=== PATIENT | female | born 1975 | race Caucasian/White ===

== ENCOUNTER → 2021-04-08 16:15 | Outpatient (CLI) | payer MEDICAID, SELFPAY ==
[2018-12-23 12:24] VITALS: BMI 41.8
[2021-04-08 18:04] LABS: Absolute Neutrophil Count 5.1 X10^3/uL (2.0-7.7); Basophil# 0.06 X10^3/uL; Basophil% 0.8 % (0-1); Eosinophil# 0.12 X10^3/uL; Eosinophils% 1.5 % (0-5); Hematocrit 41.6 % (37-47); Lymphocyte % 25.5 % (19-41); Mean Corp Hgb Conc 31.3 g/dL (32-36); Mean Corpuscular Hgb 25.5 pg (27.0-32.0); Mean Corpuscular Volume 81.7 fL (81-99); Mean Platelet Vol. 10.1 fl (6.2-12.0); Monocyte# 0.53 X10^3/uL; Monocyte% 6.8 % (0-10); NRBC Flagged by Analyzer 0 % (0-5); Neutrophil # 5.12 X10^3/uL (2.7-7.7); Neutrophil % 65.1 % (47-70); Platelet Count 259 K/mm3 (150-450); RBC Distribution Width CV 14.5 % (11.6-14.6); Red Blood Count 5.09 M/mm3 (4.2-5.4); White Blood Count 7.9 K/mm3 (4.4-11.0)
[2021-04-08 18:27] LABS: Hemoglobin A1c 10.4 % (3.8-5.6)
[2021-04-08 18:41] LABS: ALB/GLOB Ratio 0.8 RATIO (0.9-2.4); AST(SGOT) 19 U/L (15-37); Alanine Aminotransfer ALT/SGPT 32 U/L (13-56); Albumin, Serum 3.4 g/dL (3.2-5.0); Alkaline Phosphatase 62 U/L (45-117); Anion Gap 9 (5-15); BUN 20 mg/dL (7-18); BUN/Creat Ratio 29.2 RATIO (10-20); Calcium,Total 9.6 mg/dL (8.5-10.1); Chloride 105 mmol/L (98-107); Cholesterol 194 mg/dL (200); Creatinine, Serum 0.68 mg/dL (0.55-1.02); EST Glomerular Filtration Rate 98 mL/min (>60); Est Glom Filt Rate - Afr Amer 118 mL/min (>60); Glucose 203 mg/dL (74-106); High Density Lipoprotein 50 mg/dL; Potassium 3.9 mmol/L (3.5-5.1); Protein, Total 7.4 g/dL (6.4-8.2); Sodium Level 138 mmol/L (136-145); T4 Free Direct 1.11 ng/dL (0.76-1.46); Thyroid Stim Hormone (TSH) 2.24 uIU/mL (0.358-3.74); Triglycerides 142 mg/dL; Very Low Density Lipoprotein 28 mg/dL (5-40)
[2021-04-08 18:46] LABS: Vitamin B12 531 pg/mL (211-911)
[2021-04-08 18:50] LABS: Microalbumin,Random Urine 91.5 mg/L (NO RANGE EST.); Microalbumin:Creatinine Ratio 65.4 mg/g CRE (<30 mg/g CRE)
[2021-04-15 20:07] LABS: VITAMIN B6 7.5 ug/L (2.0-32.8); Vitamin B1, Thiamine 125.4 nmol/L (66.5-200.0)
[2021-04-16 13:08] LABS: Anti-Thyroglobulin AB < 1.0 IU/mL (0.0-0.9); Thyroglobulin, Serum Qt. 58.1 ng/mL (1.5-38.5); Thyroid Peroxidase AB 15 IU/mL (0-34)
== END ==
PROVIDERS: PCP Family Medicine; Referring Provider Family Medicine; Visit Provider Family Medicine
DX: E11.9 Type 2 diabetes mellitus without complications (principal); G62.9 Polyneuropathy, unspecified; L65.9 Nonscarring hair loss, unspecified
CPT/HCPCS: 36415; 80053; 80061; 82043; 82570; 82607; 83036; 84207; 84425; 84432; 84439; 84443; 85025; 86376; 86800

== ENCOUNTER 2021-04-24 08:24 | Outpatient (RCR) | payer MEDICAID, SELFPAY ==
[2018-12-23 12:24] VITALS: BMI 41.8
[2021-04-24 08:45] VITALS: BP 149/103; PULSE 73; RESP 20; TEMP 36.4; BMI 44.4
--- NOTE | 2021-04-24 13:04 | PCM.WC.HP ---
History of Present Illness Date of Service: 04/24/21 Chief Complaint: Right Great Toe Ulcer History of Wound: Ms Hunter is a 45yo who was referred here by her PCP due to recurrent area of ulceration and callus formation over her right great toe. Started in February and at that point, was seen by a [facility] at the [facility]. She states that the callus was 'shaved' off and she also had inserts made. She however states that she is on her feet a lot. Callus recurred . Occasional drainage but none recently. History of diabetes mellitus type 2 and working closely with a primary care physician to manage this. Currently on Metformin which she reports compliance with. She denies chills, fever or otherwise feeling of unwell. [facility] Medical History (Updated 04/24/21 @ 13:[address] Sylvie Bauer MD) Callus of foot Type 2 diabetes mellitus Home Medications metformin 500 mg PO BID 04/24/21 [History Last Taken Unknown] Allergy/AdvReac Type Severity Reaction Status Date / Time No Known Allergies Allergy Verified 04/24/21 09:07 Social History (Updated 12/23/18 @ 12:38 by TRAIC Obregon) Smoking Status: Never smoker ROS Constitutional Constitutional: Denies body ache(s), lethargy, malaise, night sweats, poor appetite or snoring Eyes Eyes: Denies change in eye color, discharge from eye(s), discongugate gaze, foreign body, halo effect or irritation ENT HEENT: Denies foreign body in nose, hearing loss, hoarseness, lip swelling, nasal obstruction, nasal trauma, neck mass or odynophagia Cardiovascular Cardiovascular: Denies chest pain, chest pain at rest, chest pain with activity, claudication, cold extremities, dyspnea at rest, edema, fatigue or flutter in chest Respiratory/Chest Respiratory/Chest: Denies difficulty clearing secretions, dry cough, dusky skin, dyspnea, hoarseness, pain with cough or pale skin Gastrointestinal Gastrointestinal: Denies anorexia, coffee ground emesis, constipation, cramping, diarrhea, dry heaves or dyspepsia Genitourinary Genitourinary: Denies abdominal discomfort, burning urination, change in urinary stream or difficulty urinating Musculoskeletal Musculoskeletal: Denies joint stiffness, joint swelling, loss of height, muscle cramps or muscle spasms Integumentary Integumentary: Denies erythema, hirsutism, jaundice, nail changes or new lesions Neurologic Neurologic: Denies abnormal hearing, abnormal movements, disequilibrium, dizziness, focal weakness or frequent falls Psychiatric Psychiatric: Denies abnormal sleep pattern, anhedonia, anxiety, auditory hallucinations or cognitive impairment Endocrine Endocrinology: Denies excessive sweating, fatigue, flushing or heat intolerance Vital Signs Vital Signs Vital Signs: 04/24/21 08:45 Temperature 97.5 F L Temperature Source Temporal Pulse Rate 73 Respiratory Rate 20 H Blood Pressure 149/103 H Blood Pressure Mean 118 Blood Pressure Source Monitor Weight Weight: 309 lb 3.654 oz Body Mass Index (BMI) 44.4 Physical Exam Const Negative for alert, oriented x3 or no apparent distress General Appearance: Negative for cooperative or comfortable Orientation / Consciousness: Negative for awake HEENT Negative for normocephalic or head/scalp atraumatic Head and Scalp: Negative for normal to inspection, normocephalic or atraumatic Neck full ROM General: normal visual inspection Resp normal respiratory effort Effort and Inspection: able to speak in complete sentences Extremity normal to inspection General Extremity: normal exam except as noted Skin General Skin Exam: no breakdown Neuro oriented x3, CN's II-XII intact bilaterally and moves all extremities Psych Appearance: grossly normal Activity / Motor Behavior: appropriate eye contact Speech: normal speech Mood & Affect: euthymic mood Thought Process: normal thought process Charges/Coding Visit Charges Office Visits / Consults: 96011 OV L4 New Assessment/Plan Assessment/Plan (1) Callus of foot: CODE(S): L84 - Corns and callosities (2) Type 2 diabetes mellitus: CODE(S): E11.9 - Type 2 diabetes mellitus without complications PLAN: Recurrent area of callus formation, Right great toe. Debridement/shaving off of callus done today. No ulceration. Probed and no area of opening as well. She is prone to recurrent pressure to the area and callus formation. Wear appropriate footwear at all times. Pressure support/offloading. She states that she has been given shoes and inserts by podiatry, she was advised to use this consistently. Keep area protected. Optimal diabetes control. She was advised to call if there is any area of opening or new concerns develop. She voiced understanding. Discharge from the wound center This note was generated with [employer] software. It may contain incorrect words, spelling, and punctuation that were not noted in checking the note before signing.
== END 2021-04-24 09:47 | disposition home or self-care (01) ==
LOC: WC 08:24
PROVIDERS: PCP Family Medicine; Visit Provider Internal Medicine
DX: L84 Corns and callosities (principal); E11.9 Type 2 diabetes mellitus without complications
CPT/HCPCS: 99203; G0463

== ENCOUNTER → 2021-04-29 13:31 | Outpatient (CLI) | payer MEDICAID, SELFPAY ==
[2018-12-23 12:24] VITALS: BMI 41.8
[2021-04-24 08:45] VITALS: BMI 44.4
--- NOTE | 2021-04-29 13:35 | ART_ITS ---
Reason For Study: Foot ulcer Procedure A bilateral lower extremity continuous wave Doppler with analog waveform analysis,segmental pressures,and ankle brachial indexes with exercise. Left Segmental Pressures Left brachial= 128mmHg. Left posterior tibial artery = 149mmHg. Left dorsalis pedis artery = 139mmHg. Left digit = 108 mmHg. The left dorsalis pedis waveforms are triphasic. The left posterior tibial artery waveforms are triphasic. Right Segmental Pressures Right brachial= 125mmHg. Right posterior tibial artery = 140mmHg. Right dorsalis pedis artery = 127mmHg. Right digit = 98 mmHg. The right dorsalis pedis waveforms are triphasic. The right posterior tibial artery waveforms are triphasic. Indices The right ankle brachial index by the dorsalis pedis is 0.99. The right ankle brachial index by the posterior tibial artery is 1.09. The right digital-brachial index is 0.77. The right post exercise ankle brachial index is 1.25. The left ankle brachial index by the dorsalis pedis is 1.09. The left ankle brachial index by the posterior tibial artery is 1.16. The left digital-brachial index is 0.84. The left post exercise ankle brachial index is 1.23. VL/Lower Ext Art Exam w/ Exercise Interpretation Summary Triphasic Doppler waveforms are noted at ankle level bilaterally. Pulse-volume recordings are satisfactory at all levels bilaterally, including low-thigh, calf, ankle, and d igital levels. Resting ankle-brachial indices are normal bilaterally. Digital-brachial indices are normal bilaterally. The patient was ambulated on a treadmill for 5 minutes at 1.4 mile s per hour and a 5% grade, following which ankle pressures augmented bilaterally, a normal physiolo gical response. There is no evidence of significant arterial occlusive disease in the lower ext remities bilaterally. Ordering Physician: Marco Griffith Referring Physician: Marco Griffith Performed By: Carmen Guzmán RVT and Student
--- NOTE | 2021-04-29 13:35 | US_ITS ---
STUDY: THYROID ULTRASOUND REASON FOR EXAM: Female, 45 years old. NODULE TECHNIQUE: Ultrasound evaluation of the thyroid was performed with real-time and static ahn-scale imaging. COMPARISON: None. FINDINGS: RIGHT LOBE: The right lobe of the thyroid gland measures 8 x 2.7 x 2.4 cm. multiple nodules are present on the right side at least 3 of them detected one measures 0.6 x 0.8 x 0.5 cm the other one measures 0.6 x 0.8 x 0.3 both of these are seen in the upper aspect of the right lobe. There is 0.9 x 1 x 0.8 cm in the lower pole of the right lobe there are few tiny ones as well. The left lobe measures 6.7 x 2.7 x 1.6 cm. multiple nodules seen the largest noted in the lower lobe that measures 1.7 x 1.5 x 1.2 cm all of them are solid. The isthmus is 6 mm in thickness. The right parathyroid gland seen in entities hypoechoic texture is it measures 2.5 x 1.5 x 0.9 cm. US/Thyroid IMPRESSION: Multiple small solid nodules involving both lobes of the thyroid as mentioned above. Electronically Signed: Ramona Link, at 10:35 EDT Tel , Service support ,
== END ==
PROVIDERS: PCP Family Medicine; Referring Provider Family Medicine; Visit Provider Family Medicine
DX: E04.1 Nontoxic single thyroid nodule (principal); E11.621 Type 2 diabetes mellitus with foot ulcer
CPT/HCPCS: 76536; 93924

== ENCOUNTER 2021-04-30 15:00 | Outpatient (RCR) | payer MEDICAID, SELFPAY | END 2021-05-07 23:59 | LOC: DC 15:00 | PROVIDERS: PCP Family Medicine; Visit Provider Family Medicine | DX: E11.9 Type 2 diabetes mellitus without complications (principal) | CPT/HCPCS: G0108 ==

== ENCOUNTER → 2021-05-22 11:48 | Outpatient (CLI) | payer MEDICAID, SELFPAY ==
[2021-04-24 08:45] VITALS: BMI 44.4
--- NOTE | 2021-05-22 | ASPS_PTH ---
PAT[facility]: [facility] U[id number] AGE/SX: 50/F ROOM: RE05/22/[address]: Dr. Jose Brown MD : 1975 BED: DIS: SPEC #: [id number] RECD: 05/23/21 11:45 STATUS: MARIA SUTTONJoaquín #: [id number] ALYSA: 05/22/21 00:[address]: Jose Brown DEPT: CYTOLOGY RECD BY: Veronica Duarte ENTERED: 05/23/21 13:34 SP TYPE: ASPIRATION OTHR DR: Dr. Marco Griffith MD Tissues: Thyroid gland, NOS Procedures: Special Stain Group II Cytology Other HEADER OPERATION: Ultrasound-guided fine needle aspiration of left thyroid PRE-OP DIAGNOSIS: Thyroid nodules TISSUE SUBMITTED: FNA left thyroid slides x12 DIAGNOSIS CYTOLOGY Left thyroid nodule, ultrasound-guided FNA (smears): Consistent with benign follicular/colloid nodule. Adequate for evaluation. See comment. SJ:vijay 05/26/2021 COMMENT Correlation with clinical, radiologic findings and appropriate follow up are necessary. CYTOLOGY STUDY Slides are reviewed. CYTOLOGY GROSS Received are 12 smears labeled with the patient's name and designated per the requisition as left thyroid. Submitted for staining. / vijay 05/23/2021 TC:5 CPT: 28627
== END ==
PROVIDERS: PCP Family Medicine; Visit Provider Surgery
DX: E04.1 Nontoxic single thyroid nodule (principal)
CPT/HCPCS: 88161; 88313

== ENCOUNTER 2021-06-05 16:00 | Outpatient (RCR) | payer MEDICAID, SELFPAY | END 2021-06-07 23:59 | LOC: DC 16:00 | PROVIDERS: PCP Family Medicine; Visit Provider Family Medicine | DX: E11.9 Type 2 diabetes mellitus without complications (principal) | CPT/HCPCS: 97802; 97803 ==

== ENCOUNTER 2021-06-19 15:50 | Outpatient (RCR) | payer MEDICAID, SELFPAY | END 2021-07-08 23:59 | LOC: DC 15:50 | PROVIDERS: PCP Family Medicine; Visit Provider Family Medicine | DX: E11.9 Type 2 diabetes mellitus without complications (principal) | CPT/HCPCS: G0108 ==

== ENCOUNTER 2021-07-22 15:15 | Outpatient (RCR) | payer MEDICAID, SELFPAY ==
[2021-07-09 00:37] VITALS: BMI 44.4
== END 2021-08-07 23:59 ==
LOC: DC 15:15
PROVIDERS: PCP Family Medicine; Visit Provider Family Medicine
DX: E11.9 Type 2 diabetes mellitus without complications (principal)
CPT/HCPCS: 97803

== ENCOUNTER → 2021-07-29 15:09 | Outpatient (CLI) | payer MEDICAID, SELFPAY ==
[2021-07-29 18:04] LABS: Absolute Neutrophil Count 7.3 X10^3/uL (2.0-7.7); Basophil# 0.07 X10^3/uL; Basophil% 0.7 % (0-1); Eosinophil# 0.17 X10^3/uL; Eosinophils% 1.6 % (0-5); Hematocrit 40.7 % (37-47); Hemoglobin 12.7 g/dL (12.0-15.0); Lymphocyte % 21.8 % (19-41); Mean Corp Hgb Conc 31.2 g/dL (32-36); Mean Corpuscular Hgb 25.6 pg (27.0-32.0); Mean Corpuscular Volume 82.1 fL (81-99); Mean Platelet Vol. 10.1 fl (6.2-12.0); Monocyte# 0.71 X10^3/uL; Monocyte% 6.7 % (0-10); NRBC Flagged by Analyzer 0 % (0-5); Neutrophil # 7.25 X10^3/uL (2.7-7.7); Neutrophil % 68.9 % (47-70); Platelet Count 283 K/mm3 (150-450); RBC Distribution Width SD 44.5 fl (35.1-43.9); Red Blood Count 4.96 M/mm3 (4.2-5.4); White Blood Count 10.5 K/mm3 (4.4-11.0)
[2021-07-29 18:17] LABS: ALB/GLOB Ratio 0.8 RATIO (0.9-2.4); AST(SGOT) 19 U/L (15-37); Alanine Aminotransfer ALT/SGPT 20 U/L (13-56); Albumin, Serum 3.5 g/dL (3.2-5.0); Alkaline Phosphatase 49 U/L (45-117); Anion Gap 7 (5-15); BUN 17 mg/dL (7-18); BUN/Creat Ratio 19.7 RATIO (10-20); Calcium,Total 9.5 mg/dL (8.5-10.1); Chloride 104 mmol/L (98-107); Cholesterol 127 mg/dL (200); Creatinine, Serum 0.86 mg/dL (0.55-1.02); EST Glomerular Filtration Rate 75 mL/min (>60); Est Glom Filt Rate - Afr Amer 90 mL/min (>60); Globulin 4.3 g/dL (2.2-4.2); Glucose 109 mg/dL (74-106); High Density Lipoprotein 49 mg/dL; Protein, Total 7.8 g/dL (6.4-8.2); Sodium Level 135 mmol/L (136-145); Triglycerides 72 mg/dL; Very Low Density Lipoprotein 14 mg/dL (5-40)
[2021-07-29 18:33] LABS: Hemoglobin A1c 6.6 % (3.8-5.6)
[2021-07-29 18:35] LABS: Microalbumin,Random Urine 32.3 mg/L (NO RANGE EST.); Microalbumin:Creatinine Ratio 42.5 mg/g CRE (<30 mg/g CRE)
== END ==
PROVIDERS: PCP Family Medicine; Referring Provider Family Medicine; Visit Provider Family Medicine
DX: E11.9 Type 2 diabetes mellitus without complications (principal)
CPT/HCPCS: 36415; 80053; 80061; 82043; 82570; 83036; 85025

== ENCOUNTER → 2021-10-28 14:51 | Outpatient (CLI) | payer MEDICAID, SELFPAY ==
[2021-10-28 18:03] LABS: ALB/GLOB Ratio 0.9 RATIO (0.9-2.4); AST(SGOT) 13 U/L (15-37); Alanine Aminotransfer ALT/SGPT 19 U/L (13-56); Albumin, Serum 3.5 g/dL (3.2-5.0); Alkaline Phosphatase 55 U/L (45-117); Anion Gap 10 (5-15); BUN 21 mg/dL (7-18); BUN/Creat Ratio 30.7 RATIO (10-20); Calcium,Total 9.2 mg/dL (8.5-10.1); Chloride 103 mmol/L (98-107); Cholesterol 124 mg/dL (200); Creatinine, Serum 0.68 mg/dL (0.55-1.02); EST Glomerular Filtration Rate 98 mL/min (>60); Est Glom Filt Rate - Afr Amer 118 mL/min (>60); Globulin 4.1 g/dL (2.2-4.2); Glucose 112 mg/dL (74-106); High Density Lipoprotein 52 mg/dL; Protein, Total 7.6 g/dL (6.4-8.2); Sodium Level 136 mmol/L (136-145); Triglycerides 97 mg/dL; Very Low Density Lipoprotein 19 mg/dL (5-40)
[2021-10-28 18:09] LABS: Hemoglobin A1c 6.6 % (3.8-5.6)
[2021-10-28 18:23] LABS: Microalbumin:Creatinine Ratio 261.6 mg/g CRE (<30 mg/g CRE)
== END ==
PROVIDERS: PCP Family Medicine; Referring Provider Family Medicine; Visit Provider Family Medicine
DX: E11.29 Type 2 diabetes mellitus with other diabetic kidney complication (principal)
CPT/HCPCS: 36415; 80053; 80061; 82043; 82570; 83036

== ENCOUNTER 2021-12-03 18:00 | Outpatient (CLI) | payer MEDICAID, SELFPAY | END 2021-12-03 23:59 | disposition short-term general hospital (02) | PROVIDERS: PCP Family Medicine; Visit Provider Nurse Practitioner Family | DX: U07.1 COVID-19 (principal) | CPT/HCPCS: 87635; U0003; U0005 ==

== ENCOUNTER 2021-12-18 16:34 | Outpatient (CLI) | payer MEDICAID, SELFPAY | END 2021-12-18 23:59 | disposition home or self-care (01) | PROVIDERS: PCP Family Medicine; Referring Provider Family Medicine; Visit Provider Family Medicine | DX: Z12.4 Encounter for screening for malignant neoplasm of cervix (principal) ==

== ENCOUNTER 2021-12-25 16:01 | Outpatient (CLI) | payer MEDICAID, SELFPAY ==
--- NOTE | 2021-12-25 16:04 | BI_ITS ---
MAMMOGRAPHY - BILATERAL SCREENING REASON FOR EXAM: Female, 46 years old. Routine annual screening examination. PERTINENT HISTORY: Non-contributory. TECHNIQUE: Digital bilateral breast lucila (3D mammographic acquisition) in the CC and MLO projections. 2-D mediolateral oblique (MLO) and craniocaudad (CC) views of both breasts were obtained. CAD: Full Field Digital Mammography with Computer Added Detection was performed. COMPARISON: None. Baseline examination. FINDINGS: Breast Composition: The breasts are almost entirely fatty. There are no dominant masses or suspicious calcifications. No other significant abnormalities are identified. BI/SCRN MAMM (CAD)W/LUCILA BILAT IMPRESSION: Negative screening mammogram. Yearly followup mammogram recommended. (A) ASSESSMENT CATEGORY: BIRADS Category 1: Negative. A letter regarding these results will be sent to the patient by the facility within 30 days. Approximately 10% of breast cancers are not detected by mammography. A normal mammogram should not delay biopsy of a clinically suspicious abnormality. [id number] Electronically Signed: Stalin Batista MD at 8:23 EST ,
== END 2021-12-25 23:59 | disposition home or self-care (01) ==
LOC: OPBI 16:03
PROVIDERS: PCP Family Medicine; Referring Provider Family Medicine; Visit Provider Family Medicine
DX: Z12.31 Encounter for screening mammogram for malignant neoplasm of breast (principal)
CPT/HCPCS: 77063; 77067

== ENCOUNTER 2022-02-17 08:03 | Outpatient (CLI) | payer MEDICAID, SELFPAY ==
[2022-02-17 10:13] LABS: Absolute Lymphocyte Count 1.36 X10^3/uL (0.83-4.51); Absolute Neutrophil Count 4.7 X10^3/uL (2.0-7.7); Basophil# 0.04 X10^3/uL; Basophil% 0.6 % (0-1); Eosinophil# 0.11 X10^3/uL; Eosinophils% 1.6 % (0-5); Hematocrit 35.5 % (37-47); Hemoglobin 10.6 g/dL (12.0-15.0); Lymphocyte # 1.36 X10^3/ul (0.83-4.51); Lymphocyte % 19.9 % (19-41); Mean Corp Hgb Conc 29.9 g/dL (32-36); Mean Corpuscular Hgb 23.1 pg (27.0-32.0); Mean Corpuscular Volume 77.5 fL (81-99); Mean Platelet Vol. 10.1 fl (6.2-12.0); Monocyte# 0.56 X10^3/uL; Monocyte% 8.2 % (0-10); NRBC Flagged by Analyzer 0 % (0-5); Neutrophil # 4.74 X10^3/uL (2.7-7.7); Neutrophil % 69.1 % (47-70); Platelet Count 239 K/mm3 (150-450); RBC Distribution Width CV 16.6 % (11.6-14.6); RBC Distribution Width SD 46.9 fl (35.1-43.9); Red Blood Count 4.58 M/mm3 (4.2-5.4); White Blood Count 6.9 K/mm3 (4.4-11.0)
[2022-02-17 10:55] LABS: ALB/GLOB Ratio 1.2 RATIO (0.9-2.4); AST(SGOT) 16 U/L (15-37); Alanine Aminotransfer ALT/SGPT 18 U/L (13-56); Albumin, Serum 3.6 g/dL (3.2-5.0); Alkaline Phosphatase 46 U/L (45-117); Anion Gap 8 (5-15); BUN 14 mg/dL (7-18); Calcium,Total 8.4 mg/dL (8.5-10.1); Chloride 106 mmol/L (98-107); Cholesterol 111 mg/dL (200); Creatinine, Serum 0.58 mg/dL (0.55-1.02); EST Glomerular Filtration Rate 117 mL/min (>60); Est Glom Filt Rate - Afr Amer 142 mL/min (>60); Globulin 3.1 g/dL (2.2-4.2); Glucose 134 mg/dL (74-106); High Density Lipoprotein 54 mg/dL; Potassium 4.1 mmol/L (3.5-5.1); Protein, Total 6.7 g/dL (6.4-8.2); Sodium Level 139 mmol/L (136-145); Triglycerides 64 mg/dL; Very Low Density Lipoprotein 13 mg/dL (5-40)
[2022-02-17 11:04] LABS: Microalbumin:Creatinine Ratio 50.4 mg/g CRE (<30 mg/g CRE)
[2022-02-17 16:27] LABS: Ferritin 6 ng/mL (8-252); Iron 29 ug/dL (50-170); Iron Binding Capacity,Total 404 ug/dL (250-450); PERCENT IRON SATURATION 7.2 % (15.0-55.0)
[2022-02-17 18:00] LABS: Vitamin B12 429 pg/mL (211-911)
== END 2022-02-17 23:59 | disposition home or self-care (01) ==
LOC: MFPLAB 08:04
PROVIDERS: PCP Family Medicine; Referring Provider Family Medicine; Visit Provider Family Medicine
DX: E11.9 Type 2 diabetes mellitus without complications (principal)
CPT/HCPCS: 36415; 80053; 80061; 82043; 82570; 82607; 82728; 83036; 83540; 83550; 85025

== ENCOUNTER → 2022-05-21 | Outpatient (CLI) | payer MEDICAID, SELFPAY ==
[2022-05-21 18:11] LABS: Absolute Lymphocyte Count 1.95 X10^3/uL (0.83-4.51); Absolute Neutrophil Count 5.7 X10^3/uL (2.0-7.7); Basophil# 0.04 X10^3/uL; Basophil% 0.5 % (0-1); Eosinophil# 0.12 X10^3/uL; Eosinophils% 1.4 % (0-5); Hemoglobin 12.5 g/dL (12.0-15.0); Lymphocyte # 1.95 X10^3/ul (0.83-4.51); Mean Corp Hgb Conc 31.3 g/dL (32-36); Mean Corpuscular Hgb 25.6 pg (27.0-32.0); Monocyte% 7.1 % (0-10); NRBC Flagged by Analyzer 0 % (0-5); Neutrophil # 5.72 X10^3/uL (2.7-7.7); Neutrophil % 67.6 % (47-70); Platelet Count 241 K/mm3 (150-450); RBC Distribution Width CV 17.2 % (11.6-14.6); RBC Distribution Width SD 50.4 fl (35.1-43.9); Red Blood Count 4.88 M/mm3 (4.2-5.4); White Blood Count 8.5 K/mm3 (4.4-11.0)
[2022-05-21 18:37] LABS: Hemoglobin A1c 6.6 % (3.8-5.6)
[2022-05-21 18:51] LABS: AST(SGOT) 15 U/L (15-37); Alanine Aminotransfer ALT/SGPT 23 U/L (13-56); Albumin, Serum 3.6 g/dL (3.2-5.0); Alkaline Phosphatase 43 U/L (45-117); Anion Gap 6 (5-15); BUN 16 mg/dL (7-18); BUN/Creat Ratio 21.3 RATIO (10-20); Calcium,Total 9.3 mg/dL (8.5-10.1); Chloride 105 mmol/L (98-107); Cholesterol 113 mg/dL (200); Creatinine, Serum 0.75 mg/dL (0.55-1.02); EST Glomerular Filtration Rate 87 mL/min (>60); Est Glom Filt Rate - Afr Amer 105 mL/min (>60); Ferritin 16 ng/mL (8-252); Globulin 3.6 g/dL (2.2-4.2); Glucose 103 mg/dL (74-106); High Density Lipoprotein 47 mg/dL; Iron 49 ug/dL (50-170); Iron Binding Capacity,Total 379 ug/dL (250-450); Potassium 3.9 mmol/L (3.5-5.1); Protein, Total 7.2 g/dL (6.4-8.2); Sodium Level 138 mmol/L (136-145); Triglycerides 91 mg/dL; Very Low Density Lipoprotein 18 mg/dL (5-40)
[2022-05-21 18:56] LABS: Microalbumin:Creatinine Ratio 36.1 mg/g CRE (<30 mg/g CRE)
== END | disposition home or self-care (01) ==
LOC: MFPLAB 15:32
PROVIDERS: PCP Family Medicine; Referring Provider Family Medicine; Visit Provider Family Medicine
DX: E11.29 Type 2 diabetes mellitus with other diabetic kidney complication (principal); D50.9 Iron deficiency anemia, unspecified
CPT/HCPCS: 36415; 80053; 80061; 82043; 82570; 82728; 83036; 83540; 83550; 85025

== ENCOUNTER → 2022-06-02 | Outpatient (CLI) | payer MEDICAID, SELFPAY ==
--- NOTE | 2022-06-02 14:32 | US_ITS ---
STUDY: THYROID ULTRASOUND REASON FOR EXAM: Female, 46 years old. MULTIPLE THYROID NODULES TECHNIQUE: Ultrasound evaluation of the thyroid was performed with real-time and static ahn-scale imaging. COMPARISON: 04/29/2021 FINDINGS: RIGHT LOBE: The right lobe of the thyroid gland measures 8.1 x 2.6 x 2.5 cm. There is a heterogeneous echotexture. Multiple small nodules, measuring 5 x 6 x 3 mm which is partially solid and cystic. Largest nodules in the lower pole measuring 10 x 11 x 8 mm. LEFT LOBE: The left lobe of the thyroid gland measures 6.5 x 2.4 x 1.9 cm. There is a heterogeneous echotexture. Stable small nodules which are heterogeneous in appearance measuring 7 x 7 x 5 mm and 6 x 6 x 5 mm. Largest nodule in the lower pole measuring 19 x 19 x 14 mm ISTHMUS: The isthmus measures 6 mm. The regional lymph nodes are normal. Right parathyroid measuring 2.1 x 1.7 x 0.9 cm US/Thyroid IMPRESSION: Stable thyromegaly with multiple nodules as well as stable right parathyroid. Electronically Signed: Edison Angela DO at 3:23 EDT ,
== END | disposition home or self-care (01) ==
LOC: US 14:30
PROVIDERS: PCP Family Medicine; Visit Provider Family Medicine
DX: E04.2 Nontoxic multinodular goiter (principal)
CPT/HCPCS: 76536

== ENCOUNTER → 2022-08-12 | Outpatient (CLI) | payer MEDICAID, SELFPAY ==
[2022-08-12 12:41] LABS: Absolute Lymphocyte Count 1.83 X10^3/uL (0.83-4.51); Absolute Neutrophil Count 5.9 X10^3/uL (2.0-7.7); Basophil# 0.06 X10^3/uL; Basophil% 0.7 % (0-1); Eosinophil# 0.13 X10^3/uL; Eosinophils% 1.5 % (0-5); Hematocrit 43.6 % (37-47); Hemoglobin 13.5 g/dL (12.0-15.0); Lymphocyte # 1.83 X10^3/ul (0.83-4.51); Lymphocyte % 21.3 % (19-41); Mean Corpuscular Hgb 26.7 pg (27.0-32.0); Mean Corpuscular Volume 86.3 fL (81-99); Mean Platelet Vol. 9.6 fl (6.2-12.0); Monocyte# 0.61 X10^3/uL; Monocyte% 7.1 % (0-10); NRBC Flagged by Analyzer 0 % (0-5); Neutrophil # 5.92 X10^3/uL (2.7-7.7); Neutrophil % 68.9 % (47-70); Platelet Count 239 K/mm3 (150-450); RBC Distribution Width CV 15.5 % (11.6-14.6); RBC Distribution Width SD 49.1 fl (35.1-43.9); Red Blood Count 5.05 M/mm3 (4.2-5.4); White Blood Count 8.6 K/mm3 (4.4-11.0)
[2022-08-12 13:17] LABS: AST(SGOT) 19 U/L (15-37); Alanine Aminotransfer ALT/SGPT 22 U/L (13-56); Albumin, Serum 3.6 g/dL (3.2-5.0); Alkaline Phosphatase 47 U/L (45-117); Anion Gap 6 (5-15); BUN 14 mg/dL (7-18); BUN/Creat Ratio 20.8 RATIO (10-20); Calcium,Total 9.5 mg/dL (8.5-10.1); Chloride 107 mmol/L (98-107); Cholesterol 113 mg/dL (200); Creatinine, Serum 0.67 mg/dL (0.55-1.02); EST Glomerular Filtration Rate 99 mL/min (>60); Est Glom Filt Rate - Afr Amer 120 mL/min (>60); Ferritin 22 ng/mL (8-252); Globulin 3.7 g/dL (2.2-4.2); Glucose 123 mg/dL (74-106); High Density Lipoprotein 49 mg/dL; Iron 65 ug/dL (50-170); Iron Binding Capacity,Total 361 ug/dL (250-450); Protein, Total 7.3 g/dL (6.4-8.2); Sodium Level 139 mmol/L (136-145); Triglycerides 122 mg/dL; Very Low Density Lipoprotein 24 mg/dL (5-40)
[2022-08-12 14:42] LABS: Hemoglobin A1c 6.4 % (3.8-5.6)
[2022-08-13 14:45] LABS: Microalbumin,Random Urine 36.1 mg/L (NO RANGE EST.); Microalbumin:Creatinine Ratio 39.1 mg/g CRE (<30 mg/g CRE)
== END | disposition home or self-care (01) ==
LOC: MFPLAB 11:11
PROVIDERS: PCP Family Medicine; Referring Provider Family Medicine; Visit Provider Family Medicine
DX: E11.9 Type 2 diabetes mellitus without complications (principal); D50.9 Iron deficiency anemia, unspecified
CPT/HCPCS: 36415; 80053; 80061; 82043; 82570; 82728; 83036; 83540; 83550; 85025

== ENCOUNTER → 2022-12-15 | Outpatient (CLI) | payer MEDICAID, SELFPAY ==
[2022-12-15 12:29] LABS: Absolute Neutrophil Count 6.9 X10^3/uL (2.0-7.7); Basophil# 0.05 X10^3/uL; Basophil% 0.5 % (0-1); Eosinophil# 0.14 X10^3/uL; Eosinophils% 1.5 % (0-5); Hematocrit 41.3 % (37-47); Lymphocyte % 18.2 % (19-41); Mean Corp Hgb Conc 31.5 g/dL (32-36); Mean Corpuscular Hgb 27.5 pg (27.0-32.0); Mean Corpuscular Volume 87.3 fL (81-99); Mean Platelet Vol. 9.9 fl (6.2-12.0); Monocyte# 0.54 X10^3/uL; Monocyte% 5.8 % (0-10); NRBC Flagged by Analyzer 0 % (0-5); Neutrophil # 6.86 X10^3/uL (2.7-7.7); Neutrophil % 73.7 % (47-70); Platelet Count 229 K/mm3 (150-450); RBC Distribution Width CV 14.8 % (11.6-14.6); RBC Distribution Width SD 47.8 fl (35.1-43.9); Red Blood Count 4.73 M/mm3 (4.2-5.4); White Blood Count 9.3 K/mm3 (4.4-11.0)
[2022-12-15 13:27] LABS: Microalbumin,Random Urine 50.6 mg/L (NO RANGE EST.)
[2022-12-15 13:32] LABS: ALB/GLOB Ratio 0.9 RATIO (0.9-2.4); AST(SGOT) 16 U/L (15-37); Alanine Aminotransfer ALT/SGPT 19 U/L (13-56); Albumin, Serum 3.4 g/dL (3.2-5.0); Alkaline Phosphatase 44 U/L (45-117); Anion Gap 8 (5-15); BUN 17 mg/dL (7-18); BUN/Creat Ratio 29.4 RATIO (10-20); Calcium,Total 9.3 mg/dL (8.5-10.1); Chloride 109 mmol/L (98-107); Cholesterol 109 mg/dL (200); Creatinine, Serum 0.58 mg/dL (0.55-1.02); EST Glomerular Filtration Rate 118 mL/min (>60); Est Glom Filt Rate - Afr Amer 143 mL/min (>60); Ferritin 8 ng/mL (8-252); Globulin 3.8 g/dL (2.2-4.2); Glucose 148 mg/dL (74-106); High Density Lipoprotein 57 mg/dL; Iron 77 ug/dL (50-170); Iron Binding Capacity,Total 501 ug/dL (250-450); Potassium 4.1 mmol/L (3.5-5.1); Protein, Total 7.2 g/dL (6.4-8.2); Sodium Level 139 mmol/L (136-145); Triglycerides 84 mg/dL; Very Low Density Lipoprotein 17 mg/dL (5-40)
[2022-12-15 14:03] LABS: Hemoglobin A1c 6.4 % (3.8-5.6)
== END | disposition home or self-care (01) ==
LOC: MFPLAB 10:43
PROVIDERS: PCP Family Medicine; Referring Provider Family Medicine; Visit Provider Family Medicine
DX: D50.9 Iron deficiency anemia, unspecified (principal); E11.9 Type 2 diabetes mellitus without complications
CPT/HCPCS: 36415; 80053; 80061; 82043; 82570; 82728; 83036; 83540; 83550; 85025

== ENCOUNTER → 2023-04-15 | Outpatient (CLI) | payer MEDICAID, SELFPAY ==
[2023-04-15 17:48] LABS: Absolute Lymphocyte Count 1.85 X10^3/uL (0.83-4.51); Absolute Neutrophil Count 7.9 X10^3/uL (2.0-7.7); Basophil# 0.05 X10^3/uL; Basophil% 0.5 % (0-1); Eosinophil# 0.13 X10^3/uL; Eosinophils% 1.2 % (0-5); Hematocrit 42.2 % (37-47); Hemoglobin 12.8 g/dL (12.0-15.0); Lymphocyte # 1.85 X10^3/ul (0.83-4.51); Lymphocyte % 17.4 % (19-41); Mean Corp Hgb Conc 30.3 g/dL (32-36); Mean Corpuscular Hgb 26.7 pg (27.0-32.0); Mean Corpuscular Volume 88.1 fL (81-99); Mean Platelet Vol. 9.9 fl (6.2-12.0); Monocyte# 0.65 X10^3/uL; Monocyte% 6.1 % (0-10); NRBC Flagged by Analyzer 0 % (0-5); Neutrophil # 7.89 X10^3/uL (2.7-7.7); Neutrophil % 74.4 % (47-70); Platelet Count 230 K/mm3 (150-450); RBC Distribution Width CV 14.9 % (11.6-14.6); RBC Distribution Width SD 47.9 fl (35.1-43.9); Red Blood Count 4.79 M/mm3 (4.2-5.4); White Blood Count 10.6 K/mm3 (4.4-11.0)
[2023-04-15 18:12] LABS: Microalbumin:Creatinine Ratio 37.7 mg/g CRE (<30 mg/g CRE)
[2023-04-15 18:18] LABS: Hemoglobin A1c 6.4 % (3.8-5.6)
[2023-04-15 18:31] LABS: AST(SGOT) 14 U/L (15-37); Alanine Aminotransfer ALT/SGPT 18 U/L (13-56); Albumin, Serum 3.7 g/dL (3.2-5.0); Alkaline Phosphatase 44 U/L (45-117); Anion Gap 8 (5-15); BUN 19 mg/dL (7-18); BUN/Creat Ratio 24.8 RATIO (10-20); Calcium,Total 9.4 mg/dL (8.5-10.1); Chloride 108 mmol/L (98-107); Cholesterol 108 mg/dL (200); Creatinine, Serum 0.77 mg/dL (0.55-1.02); EST Glomerular Filtration Rate 85 mL/min (>60); Est Glom Filt Rate - Afr Amer 103 mL/min (>60); Ferritin 14 ng/mL (8-252); Globulin 3.7 g/dL (2.2-4.2); Glucose 136 mg/dL (74-106); High Density Lipoprotein 54 mg/dL; Iron 61 ug/dL (50-170); Iron Binding Capacity,Total 361 ug/dL (250-450); PERCENT IRON SATURATION 16.9 % (15.0-55.0); Potassium 3.7 mmol/L (3.5-5.1); Protein, Total 7.4 g/dL (6.4-8.2); Sodium Level 139 mmol/L (136-145); Thyroid Stim Hormone (TSH) 1.89 uIU/mL (0.358-3.74); Triglycerides 113 mg/dL; Very Low Density Lipoprotein 23 mg/dL (5-40)
== END | disposition home or self-care (01) ==
LOC: MFPLAB 16:37
PROVIDERS: PCP Family Medicine; Visit Provider Family Medicine
DX: E11.9 Type 2 diabetes mellitus without complications (principal); D50.9 Iron deficiency anemia, unspecified
CPT/HCPCS: 36415; 80053; 80061; 82043; 82570; 82728; 83036; 83540; 83550; 84443; 85025

== ENCOUNTER → 2023-12-14 | Outpatient (CLI) | payer MEDICAID, SELFPAY ==
--- OUTSIDE RECORDS SUMMARY | 2023-12-14 11:22 | XMS RPT_ITS | CCD ---
Author Name Unknown Address [address] [place] [address] Organization [facility] Care Team Providers Care [employer] Name Role Phone DOLORES HART Unavailable Unavailable DOLORES HART Unavailable Unavailable DOLORES HART Unavailable Unavailable Problems Active Problems Problem Classification Problem Date Documented Da te Episodic/Chronic Other nutritional; endocrine; and metabolic disorders (1 source) Morbid (severe) obesity due to excess calories; Translations: [Morbid (severe) obesity due to excess calories] Onset: 09-21-2017 Chronic Past or Other Problems Problem Classification Problem Date Documented Date Episodic/Chronic Biliary tract disease (1 source) Calculus of gallbladder without cholecystitis without obstruction; Translations: [Calculus of gallbladder without cholecystitis without obstruction] Onset: 09-21-2017 Episodic Medical examination/evaluatio n (1 source) Encounter for other preprocedural examination; Translations: [Encounter for other preprocedural examination] Onset: 09-21-2017 Episodic Results Test Name Value Interpretation Reference Range Facil ity Encounters Encounter Date Encounter Type Care Provider Facility Start: 09-29-2017 End: 09-29-2017 [facility] Start: 09-21-2017 End: 09-21-2017 [facility] Progress note 06-03-2021 Note Date & Type Note Facility 06-03-2021 Note HNO ID: [id number] Author: Jose Brown MD Service: ? Author Type: Physician Type: Progress Notes Filed: 06/03/2021 8:17 AM Note Text: Preoperative diagnosis: Multinodular goiter Postoperative diagnosis: Same Procedure: Ultrasound-guided fine-needle aspiration of dominant left thyroid nodule Surgical Kevin Procedure: Ultrasound of the left thyroid gland revealed the nodule in question. Prepped the skin with alcohol. I injected 1% lidocaine plain. Under ultrasound guidance I took 3 passes with a 22-gauge needle. I plated these on glass slides. Sterile dressings were applied. Patient tolerated the procedure well. [facility] Progress note 05-06-2021 Note Date & Type Note Facility 05-06-2021 Note HNO ID: [id number] Author: Jose Brown MD Service: ? Author Type: Physician Type: Progress Notes Filed: 05/07/2021 8:37 AM Note Text: HISTORY AND PHYSICAL eVrna [place] 1975 REFERRING PHYSICIAN: Marco Mcleod MD CHIEF COMPLAINT: Consult (thyroid) HPI: The patient is a 45 year old female with a complaint of a bilateral thyroid nodule. This thyroid nodule was found on Ultrasound by [facility]. The patient denies pain, denies difficulty swallowing, deniesrapid enlargement of the neck, notes occasionaldysphagia, denies a change in the voice, denies hot or cold intolerence. The patient has not a prior history of neck radiation treatment. The patient is being seen by me today at the request of Dr. Mcleod for my opinion and advice regarding Multinodular goiter (primary encounter diagnosis). PAST MEDICAL HISTORY Diagnosis Date - Borderline high cholesterol - Calculus of gallbladder without mention of cholecystitis or obstruction - Obesity, unspecified - Type 2 diabetes mellitus (HCC) PAST SURGICAL HISTORY Procedure Laterality Date - DELIVERY ONLY 11/04/2006 , low cervical - LAPAROSCOPIC CHOLEYCYSTECTOMY 09/29/2017 Cholecystectomy, lap [facility] Current Outpatient Medications Medication Sig Dispense Refill - lisinopril (ZESTRIL, PRINIVIL) 5 mg tablet Take 5 mg by mouth once daily. - metFORMIN ER (GLUCOPHAGE XR) 500 mg 24 hr tablet Take 500 mg by mouth twice daily. Take 2 pills twice daily - rosuvastatin (CRESTOR) 10 mg tablet No current facility-administered medications for this visit. ALLERGIES: Patient has no known allergies. PERSONAL HISTORY: Social History Tobacco Use - Smoking status: Never Smoker - Smokeless tobacco: Never Used Substance Use Topics - Alcohol use: No - Drug use: No FAMILY HISTORY: FAMILY HISTORY Problem Relation Age of Onset - Heart Mother family heart disease - Kidney Disease Mother - Hypertension Father Diabetes runs in family - Hypertension Sister - Thyroid Sister - Diabetes Sister - Diabetes Sister - Heart Brother - Heart Attack Brother - Heart disease Brother - Melanoma Brother REVIEW OF SYMPTOMS: The review of systems data was entered by the nurse and reviewed by pa Nursing Notes: Emeli Chapman RN 05/06/2021 3:30 PM Signed REVIEW OF SYSTEMS: General: The patient denies fatigue, denies weight loss, denies weight gain, denies feeling hot, and denies feelings of cold. Eyes: The patient denies glaucoma, denies eye injury/surgery, wears glasses or contacts. Ear/Nose/Throat: The patient denies allergies, denies hayfever, denies ear infections, and denies bloody noses. Cardiovascular: The patient denies chest pain, denies heart disease, denies high blood pressure,denies cardiac stent, denies prior heart attack, denies irregular heart beat, denies high cholesterol, denies poor circulation, denies heart failure, other cardiac issues, denies claudication, denies cold feet, denies peripheral arterial stent. Respiratory: The patient denies tuberculosis, denies pneumonia, denies frequent cough, denies pulmonary embolism, denies shortness of breath, and denies coughing up blood. Gastrointestinal: The patient denies difficulty swallowing, denies acid reflux, denies ulcers, denies vomiting, denies jaundice/hepatitis, notes gallbladder problems, denies black or tarry stools, denies hemorrhoids, denies bleeding from rectum, denies diverticulitis, denies constipation, denies diarrhea, denies loss of stool control, and denies hernias. Kidney/Bladder: The patient denies kidney stones, denies urine infections, and denies bloody urine. Skin: The patient denies a history of skin cancer, denies bleeding/changing moles, and denies a history of skin rash. Neurologic: The patient denies a history of epilepsy/convulsions, denies headaches, denies head/spinal injuries, and denies stroke/TIA. Psychiatric: The patient denies psychiatric medications, denies depression, and denies voices, denies substance abuse. Endocrine: The patient notes thyroid disorders, notes diabetes, and denies hormonal problems. Hematologic: The patient denies a history of bruising, denies bleeding, and denies anemia, denies blood clots. Infections: The patient denies a history of measles and mumps, denies rheumatic fever, and denies sexually transmitted diseases. Musculoskeletal: The patient denies back pain/injury, denies back problems, denies sciatica, denies knee/foot trouble, denies arthritis, or denies gout. When was patient's last Mammogram screening? unknown Last Colonoscopy: never Emeli Chapman RN PHYSICAL EXAMINATION: General: The patient is 45 year old female, well nourished, well hydrated in no acute distress. The patient is oriented to time, place, and person. VITALS: Blood pressure 110/80, pulse 115, temperature 36.7 ?C (98 ?F), temperature source Temporal Artery, weight 135.2 kg (298 lb), la (more content not included)... [facility] Progress note 03-28-2021 Note Date & Type Note Facility 03-28-2021 Note HNO ID: [id number] Author: Juventino Mcneal Service: ? Author Type: Physician Type: Progress Notes Filed: 03/28/2021 8:11 AM Note Text: Follow up podiatric office visit for: Chief Complaint: This 45 year old who presents for follow up:right foot callus Patient presents to clinic for follow-up right hallux callus. Patient is currently using gel inserts and donut hole pad. Patient has been fairly busy lately not only with work but planning the for her father who recently . PAIN EVALUATION No data found in the last 1 encounters. Hemoglobin A1C Date Value Ref Range Status 02/27/2021 12.2 (H) 4.3 - 5.6 % Final Comment: [place] [employer] guidelines indicate that patients with HgbA1c in the range 5.7-6.4% are at increased risk for development of diabetes, and intervention by lifestyle modification may be beneficial. HgbA1c greater or equal to 6.5% is considered diagnostic of diabetes. PCP: No primary care provider on file. PAST MEDICAL HISTORY Diagnosis Date - Calculus of gallbladder without mention of cholecystitis or obstruction - Obesity, unspecified No current outpatient medications on file. No current facility-administered medications for this visit. ALLERGIES No Known Allergies PAST SURGICAL HISTORY Procedure Laterality Date - DELIVERY ONLY 11/04/2006 , low cervical - LAPAROSCOPIC CHOLEYCYSTECTOMY 09/29/2017 Cholecystectomy, lap [facility] Physical Exam: Constitutional: Pt is a well developed 45 year old female who is alert, oriented, cooperative and in no apparent distress. OBJECTIVE: NVSI unchanged from previous visit. Dermatological: Nails 1-5 b/l are normal. Webspaces clean and dry 1-4 b/l. Skin appears well hydrated and supple. good color, texture, turgor. No open lesions present. Callus is present to right hallux. This was debrided. She has very tiny opening, approximately 1 mm to right hallux ipj. No evidence of infection present. Callus present to left hallux ipj Musculoskeletal/Orthopaedic: Patient has no pain to palpation of b/l feet ASSESSMENT: (L97.512) Ulcer of toe of right foot, with fat layer exposed (HCC) (primary encounter diagnosis) (E11.49) Other diabetic neurological complication associated with type 2 diabetes mellitus ([facility]) PLAN: 1. History and physical examination completed today. 2. Discussed callus of right hallux. This was debrided. She has very superficial, noninfected ulceration. Debridement was performed with 15 blade. Small ulceration that was debrided measures 1 mm x 1 mm x 1 mm. No bleeding present. I am going to have her apply topical wound gel to the great toe and is instructed to use supportive sneaker with insert and offloading pad. 3. I discussed diabetic shoes and/or custom inserts. She is open to both and these were prescribed 4. I discussed hallux ipj arthroplasty as an option for her. She is not interested in surgery. If this ulceration continues, one may need to consider further. 5. Callus reduced to left hallux as courtesy. Diabetic shoes ordered 6. F/u in 3 weeks Juventino Mcneal DPM [facility] Progress note 03-27-2021 Note Date & Type Note Facility 03-27-2021 Note HNO ID: [id number] Author: Savannah Ruvalcaba Ma Service: ? Author Type: ? Type: Progress Notes Filed: 03/28/2021 8:11 AM Note Text: AMB ROOMING INTAKE FLOWSHEET DATA Patient presents with: Right Foot - Established Patient, Ulcer [facility] Progress note 03-06-2021 Note Date & Type Note Facility 03-06-2021 Note HNO ID: [id number] Author: Juventino Mcneal Service: ? Author Type: Physician Type: Progress Notes Filed: 03/07/2021 3:45 PM Note Text: Follow up podiatric office visit for: Chief Complaint: This 45 year old who presents for follow up:ulceration of right hallux Patient presents to clinic for follow-up right hallux ulceration Patient is using surgical shoe with offloading insert Patient has completed antibiotic She denies any redness or drainage She does have an appointment set up to be evaluated for diabetes which is new diagnosis PAIN EVALUATION No data found in the last 1 encounters. Hemoglobin A1C Date Value Ref Range Status 02/27/2021 12.2 (H) 4.3 - 5.6 % Final Comment: [place] [employer] guidelines indicate that patients with HgbA1c in the range 5.7-6.4% are at increased risk for development of diabetes, and intervention by lifestyle modification may be beneficial. HgbA1c greater or equal to 6.5% is considered diagnostic of diabetes. PCP: No primary care provider on file. PAST MEDICAL HISTORY Diagnosis Date - Calculus of gallbladder without mention of cholecystitis or obstruction - Obesity, unspecified Current Outpatient Medications Medication Sig - amoxicillin-clavulanic acid (AUGMENTIN) 875-125 mg per tablet Take 1 tablet by mouth twice daily for 7 days. FOR 7 DAYS. No current facility-administered medications for this visit. ALLERGIES No Known Allergies PAST SURGICAL HISTORY Procedure Laterality Date - DELIVERY ONLY 11/04/2006 , low cervical - LAPAROSCOPIC CHOLEYCYSTECTOMY 09/29/2017 Cholecystectomy, lap [facility] Physical Exam: Constitutional: Pt is a well developed 45 year old female who is alert, oriented, cooperative and in no apparent distress. OBJECTIVE: NVSI unchanged from previous visit. Dermatological: Right hallux has essentially healed ulceration. Small eschar present which was debrided with 15 blade. Band aid applied. No local signs of infection. Musculoskeletal/Orthopaedic: Patient has no pain to palpation of right hallux xrays reviewed with patient. No evidence of osteomyelitis. ASSESSMENT: (L97.512) Ulcer of toe of right foot, with fat layer exposed (HCC) (primary encounter diagnosis) (E11.49) Other diabetic neurological complication associated with type 2 diabetes mellitus (HCC) PLAN: 1. History and physical examination completed today. 2. Discussed ulceration of right hallux. It is essentially healed. Small eschar present and this was debrided with 15 blade of nonviable tissue. Debridement of ulceration today was 1 mm in diameter and <1 mm deep. Ulceration measures 1 mm without signs of infection. I want patient to continue with neosporin and band aid and post-op shoe until completely healed. 3. Discussed diabetic shoes. Patient may consider. For now, I will dispense gel inserts with donut hole padding to offload 4. It is important patient get seen by medicine to discuss diabetes. Diabetic education performed today. Juventino Mcneal DPM [facility] Progress note 03-06-2021 Note Date & Type Note Facility 03-06-2021 Note HNO ID: [id number] Author: Savannah Ruvalcaba Ma Service: ? Author Type: ? Type: Progress Notes Filed: 03/06/2021 12:39 PM Note Text: AMB ROOMING INTAKE FLOWSHEET DATA Patient presents with: Left Great Toe - Established Patient, Ulcer [facility] Progress note 02-27-2021 Note Date & Type Note Facility 02-27-2021 Note HNO ID: [id number] Author: Gabby Lee (Rt) Service: ? Author Type: Director Payment Type: Progress Notes Filed: 02/27/2021 10:59 AM Note Text: Radiology Service Progress Note PATIENT NAME: Verna Hunter DATE OF SERVICE: February 27, 2021 TIME: 10:58 AM PATIENT IDENTITY VERIFICATION COMPLETED USING TWO (2) IDENTIFIERS: Name and Date of confirmed by patient verbally. FALL SCREENING: Has the patient had 2 falls in the last year or 1 fall with injury or currently using an Ambulatory Assistive Device (Walker, Cane, Wheelchair, Crutches, etc.)? No PATIENT GENDER DATA: Female. status: : No status: NO. PATIENT RELEVANT IMPLANT DATA REVIEWED: Not Applicable RADIOLOGY DEPARTMENT: General X-ray: Exam(s) Completed: Lower Extremity X-Ray(s): Toes, Right PERIPHERAL IV DATA: Not applicable SIGNED BY: RT Rosa February 27, 2021 10:58 AM [facility] Progress note 02-27-2021 Note Date & Type Note Facility 02-27-2021 Note HNO ID: [id number] Author: Juventino Mcneal Service: ? Author Type: Physician Type: Progress Notes Filed: 03/07/2021 3:43 PM Note Text: Consultation requested by urgent care for an opinion regarding ulceration of right great toe. My final recommendations will be communicated back to the requesting physician by way of shared Medical record or letter to requesting physician via US mail. Initial Podiatric Office Visit: Chief Complaint: This 45 year old female who presents with chief complaint:ulceration of right hallux HPI Patient presents to clinic for evaluation of right hallux. Patient has ulceration to right hallux that has been present x 12 days. Patient states the ulceration began as a callus. Patient states that over the past few weeks, the right great toe has been increasing redness, swelling and drainage. Patient presented to urgent care this past Wednesday and she was prescribed bactrim. Patient states the toe is getting better. She denies diabetes. PAIN EVALUATION 02/27/2021 0840 Pain Level: 1 Pain Location: Toe Description: Sore Duration Amount of Time: 12 Duration Units: Days Frequency: Intermittent Intervention: Reposition;Relaxation No results found for: HBA1C PCP: No primary care provider on file. PAST MEDICAL HISTORY Diagnosis Date - Calculus of gallbladder without mention of cholecystitis or obstruction - Obesity, unspecified Current Outpatient Medications Medication Sig - sulfamethoxazole-trimethoprim (BACTRIM DS) 800-160 mg per tablet Take 1 tablet by mouth twice daily for 10 days. No current facility-administered medications for this visit. ALLERGIES No Known Allergies PAST SURGICAL HISTORY Procedure Laterality Date - DELIVERY ONLY 11/04/2006 , low cervical - LAPAROSCOPIC CHOLEYCYSTECTOMY 09/29/2017 Cholecystectomy, lap [facility] FAMILY HISTORY Problem Relation Age of Onset - Hypertension Father Diabetes runs in family - Hypertension Sister - Heart Mother family heart disease - Kidney Disease Mother Social History Tobacco Use - Smoking status: Never Smoker - Smokeless tobacco: Never Used Substance Use Topics - Alcohol use: No - Drug use: No REVIEW OF SYSTEMS GENERAL: Negative for Malaise, significant weight loss, fever RESPIRATORY: Negative for cough, wheezing and shortness of breath CARDIOVASCULAR: Negative for chest pain, leg swelling and palpitations GI: Negative for abdominal discomfort, blood in stools or black stools and change in bowel habits : Negative for dysuria, frequency and incontinence MUSCULOSKELETAL: Negative for joint pain or swelling, back pain, and muscle pain. SKIN: Negative for lesions, rash, and itching. HEMATOLOGY/LYMPHOLOGY Negative for prolonged bleeding, bruising easily, and swollen nodes. ENDOCRINE: Negative for cold or heat intolerance, polyuria, polydipsia and goiter. NEURO: negative Physical Exam: Constitutional: Pt is a well developed 45 year old female who is alert, oriented and cooperative Eyes: Following during examination. No redness or drainage. Respiratory: RR normal and nonlabored. Even breathing. No evidence of distress or shortness of breath. Psychology: Patient is engaged during conversation. Normal affect and mood. Does not appear depressed or anxious during encounter. Vascular: Dorsalis pedis and posterior tibial pulses palpable as B/l Pulses are audible b/l Capillary Fill time < 5 seconds to digits 1-5 b/l Skin temperature warm to warm proximal to distal b/l Hair growth present to digits Neurological: decreased light touch/epicritic sensation Vibratory sensation absent b/l decreased protective sensation + significant neurological deficits Dermatological: Nails 1-5 b/l appear normal. Webspaces clean and dry 1-4 b/l. Skin appears well hydrated and supple. good color, texture, turgor. Callus present to left hallux. Callus was debrided and there is very superficial ulceration that measures approximately 7 mm wider and 1 mm deep Musculoskeletal/Orthopaedic: Patient has no pain to palpation of b/l feet Foot type is pronated structurally AJ ROM is full with knee extended and flexed 1st MPJ is decreased when loaded and no pain or crepitus are noted with ROM. MTJ, STJ are full and free of pain and crepitus. +5/5 muscle strength dorsiflexion, plantarflexion, inversion, eversion b/l Radiographs: ordered ASSESSMENT: (L97.512) Ulcer of toe of right foot, with fat layer exposed (HCC) (primary encounter diagnosis) PLAN: 1. History and physical examination performed. 2. Discussed ulceration of right hallux. Today, I debrided the ulceration of all nonviable tissue with tissue nippers. Total debridement of superficial ulceration was approximately 7 mm wide and 1 mm deep. Bleeding was present and controlled with pressure. I am going to treat with aquacel and surgical shoe with offloading. I want her to stay (more content not included)... [facility] Progress note 02-27-2021 Note Date & Type Note Facility 02-27-2021 Note HNO ID: [id number] Author: Juventino Mcneal Service: ? Author Type: Physician Type: Progress Notes Filed: 02/27/2021 9:49 PM Note Text: AMB ROOMING INTAKE FLOWSHEET DATA Pain Pain Level: 1 Pain Location: Toe Description: Sore Duration Amount of Time: 12 Duration Units: Days Frequency: Intermittent Intervention: Reposition, Relaxation Patient presents with: Right Great Toe - New Patient, Swelling Patient is here to follow up from Urgent Care. C/o redness, swelling, possible callus to plantar L hallux x 12 days. Wound culture was done at and she was prescribed Bactrim. [facility] Progress note 02-22-2021 Note Date & Type Note Facility 02-22-2021 Note HNO ID: [id number] Author: Jeff Thurman Service: ? Author Type: Nurse Practitioner Type: Progress Notes Filed: 02/22/2021 3:25 PM Note Text: Subjective HPI HPI Verna Hunter is a 45 year old female who presents today for CC of right great toe pain. This started 1 week ago after callous cracked. Has tried nothing for relief. Symptoms are worsened by touching/walking. Risk factors, roasterman callous in area of infection. Denies possibility of being . .Patient presents with: Toe Pain (Big): right big toe red and swollen x 1 week PAST MEDICAL HISTORY Diagnosis Date - Calculus of gallbladder without mention of cholecystitis or obstruction - Obesity, unspecified PAST SURGICAL HISTORY Procedure Laterality Date - DELIVERY ONLY 11/04/2006 , low cervical - LAPAROSCOPIC CHOLEYCYSTECTOMY 09/29/2017 Cholecystectomy, lap [facility] ALLERGIES Patient has no known allergies. MEDICATIONS sulfamethoxazole-trimethoprim (BACTRIM DS) 800-160 mg per tablet Take 1 tablet by mouth twice daily for 10 days. FAMILY HISTORY Problem Relation Age of Onset - Hypertension Father Diabetes runs in family - Hypertension Sister - Heart Mother family heart disease - Kidney Disease Mother Social History Tobacco Use - Smoking status: Never Smoker - Smokeless tobacco: Never Used Substance Use Topics - Alcohol use: No - Drug use: No Review of Systems Constitutional: Negative for fever. Skin: Negative for itching and rash. Objective Blood pressure 128/84, pulse 98, temperature 36.4 ?C (97.6 ?F), temperature source Tympanic, resp. rate 18, weight (!) 137.9 kg (304 lb), last menstrual period 09/19/2017, SpO2 97 %. Physical Exam Constitutional: General: She is not in acute distress. Appearance: She is not toxic-appearing or diaphoretic. HENT: Head: Normocephalic and atraumatic. Cardiovascular: Pulses: Dorsalis pedis pulses are 2+ on the right side. Posterior tibial pulses are 2+ on the right side. Pulmonary: Effort: Pulmonary effort is normal. No accessory muscle usage or respiratory distress. Musculoskeletal: Feet: Neurological: Mental Status: She is alert and oriented to person, place, and time. ASSESSMENT/PLAN: 1. Toe infection - ICD9: 686.9, ICD10: L08.9 - Begin treatment with Trimethoprim-sulfamethozazole (Bactrim) DS PO BID } - No lymphangetic streaking, this was defined for patient to watch for and to seek medical care immediately if appears - Follow up for recheck in three days if s/s persist, urgent f/u for worsening s/s Will refer to pediatry - SULFAMETHOXAZOLE 800 MG-TRIMETHOPRIM 160 MG TABLET - WOUND CULTURE AND GRAM STAIN Agrees to plan Jeff Thurman APRN.LOIS [facility] Summary Purpose Family History No Family History Records FoundNo Family History Records Found Advance Directives No Advanced Directives Records FoundNo Advanced Directives Records Found Additional Source Comments INFORMATION SOURCE (unrecogn ized section and content) DATE CREATED AUTHOR AUTHOR'S ORGANIZ ATION 12/08/2021 [facility] FOR RECORDS PERTAINING TO PATIENTS WHO ARE OR HAVE BEEN ENROLLED IN A CHEMICAL DEPENDENCY/SUBSTANCEABUSE PROGRAM, SOME INFORMATION MAY BE OMITTED. This clinical summary was aggregated from multiple sources. Caution should be exercised in using it in the provision of clinical care. This summary normalizes information from multiple sources, and as a consequence, information in this document may materially change the coding, format and clinical context of patient data. In addition, data may be omitted in some cases. CLINICAL DECISIONS SHOULD BE BASED ON THE PRIMARY CLINICAL RECORDS. [facility] [employer] [facility]. provides no warranty or guarantee of the accuracy or completeness of information in this document.
[2023-12-14 12:15] LABS: Absolute Lymphocyte Count 1.73 X10^3/uL (0.83-4.51); Absolute Neutrophil Count 6.3 X10^3/uL (2.0-7.7); Basophil# 0.07 X10^3/uL; Basophil% 0.8 % (0-1); Eosinophil# 0.15 X10^3/uL; Eosinophils% 1.7 % (0-5); Hematocrit 42.4 % (37-47); Hemoglobin 12.7 g/dL (12.0-15.0); Lymphocyte # 1.73 X10^3/ul (0.83-4.51); Lymphocyte % 19.2 % (19-41); Mean Corpuscular Hgb 25.2 pg (27.0-32.0); Mean Corpuscular Volume 84.1 fL (81-99); Mean Platelet Vol. 10.3 fl (6.2-12.0); Monocyte# 0.68 X10^3/uL; Monocyte% 7.6 % (0-10); NRBC Flagged by Analyzer 0 % (0-5); Neutrophil # 6.34 X10^3/uL (2.7-7.7); Neutrophil % 70.4 % (47-70); Platelet Count 253 K/mm3 (150-450); RBC Distribution Width CV 15.6 % (11.6-14.6); RBC Distribution Width SD 46.9 fl (35.1-43.9); Red Blood Count 5.04 M/mm3 (4.2-5.4)
[2023-12-14 12:54] LABS: Microalbumin,Random Urine 20.9 mg/L (NO RANGE EST.); Microalbumin:Creatinine Ratio 21.5 mg/g CRE (<30 mg/g CRE)
[2023-12-14 13:21] LABS: ALB/GLOB Ratio 0.9 RATIO (0.9-2.4); AST(SGOT) 22 U/L (15-37); Alanine Aminotransfer ALT/SGPT 23 U/L (13-56); Albumin, Serum 3.7 g/dL (3.2-5.0); Alkaline Phosphatase 49 U/L (45-117); Anion Gap 4 (5-15); BUN 15 mg/dL (7-18); BUN/Creat Ratio 19.8 RATIO (10-20); Calcium,Total 9.7 mg/dL (8.5-10.1); Chloride 105 mmol/L (98-107); Cholesterol 120 mg/dL (200); Creatinine, Serum 0.76 mg/dL (0.55-1.02); EST Glomerular Filtration Rate 86 mL/min (>60); Est Glom Filt Rate - Afr Amer 104 mL/min (>60); Ferritin 8 ng/mL (8-252); Globulin 3.9 g/dL (2.2-4.2); Glucose 138 mg/dL (74-106); High Density Lipoprotein 59 mg/dL; Iron 41 ug/dL (50-170); Iron Binding Capacity,Total 418 ug/dL (250-450); Potassium 4.6 mmol/L (3.5-5.1); Protein, Total 7.6 g/dL (6.4-8.2); Sodium Level 134 mmol/L (136-145); Triglycerides 82 mg/dL; Very Low Density Lipoprotein 16 mg/dL (5-40)
[2023-12-14 14:00] LABS: Hemoglobin A1c 6.8 % (3.8-5.6)
== END | disposition home or self-care (01) ==
LOC: MFPLAB 10:17
PROVIDERS: PCP Family Medicine; Visit Provider Family Medicine
DX: E11.9 Type 2 diabetes mellitus without complications (principal); D50.9 Iron deficiency anemia, unspecified
CPT/HCPCS: 36415; 80053; 80061; 82043; 82570; 82728; 83036; 83540; 83550; 85025

== ENCOUNTER 2024-02-25 06:45 | Day surgery (SDC) | payer MEDICAID, SELFPAY ==
[2024-02-25 07:08] VITALS: BP 120/70; PULSE 95; RESP 16; TEMP 36.6; O2SAT 100; BMI 40.4
[2024-02-25 07:21] LABS: Internal QC Validated? YES +Cl - CLEAR BKGD; Pregnancy, Urine Negative Negative
[2024-02-25] MEDS: Lactated Ringers 1,000 ML 15 ML IV (07:26)
[2024-02-25 07:47] LABS: Bedside Glucose 148 mg/dL (74-106)
--- NOTE | 2024-02-25 07:54 | H&P.OPEN ---
HPI - General HPI Narrative DENICE SIMON, is a 48 F who presents for screening colonoscopy. She has never had a screening colonoscopy in the past. She denies any abdominal pain or blood in stool. She has no family history of colon cancer. [facility] Medical History (Updated 02/21/24 @ 16:01 by Winsome Contreras) Callus of foot High cholesterol Hypertension Iron deficiency anemia Laceration of left foot Non-smoker Type 2 diabetes mellitus Type 2 diabetes mellitus with diabetic neuropathy, unspecified Wears glasses Home Medications dapagliflozin propanediol 5 mg tablet (Farxiga) 5 mg PO DAILY 12/30/23 [History Last Taken Unknown] ferrous sulfate 325 mg (65 mg iron) tablet 325 mg PO DAILY 12/30/23 [History Last Taken Unknown] metformin 500 mg tablet 1,000 mg PO BID 12/30/23 [History Last Taken Unknown] multivitamin 1 tab PO DAILY 12/30/23 [History Last Taken Unknown] rosuvastatin 10 mg tablet 10 mg PO DAILY 12/30/23 [History Last Taken Unknown] valsartan 160 mg tablet 160 mg PO DAILY 12/30/23 [History Last Taken Unknown] Allergy/AdvReac Type Severity Reaction Status Date / Time lisinopril AdvReac COUGH Verified 02/21/24 15:52 Surgical History (Updated 02/21/24 @ 15:54 by Winsome Contreras) History of History of cholecystectomy Social History household members: children current occupational status: employed current occupation: Home Health aide Smoking Status: Never smoker alcohol intake: never substance use type: does not use Past Medical/Surgical History Planned Operation Planned Operative Procedure/s: COLONOSCOPY Previous Hospitalizations/Surgeries HX Hospitalizations: No Any Problems With Anesthesia: No You/Your Family Experience Fever (Hyperthermia) With Anes: No Cholinesterase deficiency: No Cardiovascular Hx Heart Attack: No Hx Hypertension: Yes (PER PT, CONTROLLED ON MEDS) Respiratory Hx Chronic Obstructive Pulmonary Disease (COPD): No Hx Asthma: No Hx Emphysema: No Hx Sleep Apnea: No Hx Respiratory Tract Infection/Cold (presently): No Do You Snore Loudly (louder than talking or can be heard): No Do You Often Feel Tired/ Fatigued/ Sleepy Dring Daytime?: No Has Anyone Observed You Stop Breathing During Sleep?: No Result (for STOP score): Negative Smoking Status: Never smoker Neurological Hx Seizures: No Does patient have nerve stimulator: No Reproduction : No Genitourinary Hx Renal Disease: No Endocrine Hx Diabetes: Yes (March 06, 2021 dx) Miscellaneous Recent Exposure to Contagious Disease: No Allergies lisinopril Adverse Reaction (Verified 02/21/24 15:52) COUGH Discharge Is Pt Admitted From a Penitentiary, or a Correction: No Who Could Help: FAMILY After D/C, Where Do you Plan to Go: Return Home Vital Signs Vital Signs Vital Signs: 02/25/24 07:08 02/25/24 07:08 Temperature 97.9 F Temperature Source Temporal Pulse Rate 95 Respiratory Rate 16 Respiratory Pattern Normal Blood Pressure 120/70 Blood Pressure Mean 86 Blood Pressure Source Monitor Blood Pressure Position Sitting Blood Pressure Location Left Forearm Pulse Ox 100 Oxygen Delivery Method Room Air Weight Weight: 282 lb 3.067 oz Body Mass Index (BMI) 40.4 Physical Exam Const alert and oriented x3 HEENT normocephalic Eyes PERRL Resp normal respiratory effort and normal air movement Cardio regular rate and regular rhythm GI soft to palpation, non-tender and non-distended Extremity normal to inspection Assessment & Plan Assessment/Plan (1) Encounter for screening for malignant neoplasm of colon: PLAN: I explained endoscopy in detail to the patient. I explained the risks including but not limited to stroke or heart attack with anesthesia, perforation of the GI tract, bleeding, infection. I explained that any of these could necessitate further emergency surgery. The patient understands and all questions were answered sufficiently. The patient wishes to proceed with procedure. Federico Moreno MD Pager: [facility] [address] [place] [address] [address] [place] [address] Office: Surgery Risks - Colonoscopy Risks Include but are not Limited To: Risks include but are not limited to: Bleeding, perforation requiring further surgery, inability to complete colonoscopy requiring barium enema.
[2024-02-25 08:25] VITALS: BP 120/70; PULSE 84; RESP 16; TEMP 36.3; O2SAT 97
[2024-02-25 08:30] VITALS: BP 120/70; BP 96/83; PULSE 72; RESP 16; O2SAT 95
[2024-02-25 08:36] VITALS: BP 119/88; BP 120/70; PULSE 77; RESP 16; TEMP 36.1; O2SAT 100
--- NOTE | 2024-02-25 08:39 | OP.CCLET_ITS ---
02/25/2024 Marco Griffith [address] [place] [address] Re : Colonoscopy procedure for Verna Hunter Dear Dr. Griffith This procedure was performed on Sunday, February 25, 2024. My impressions and recommendations are as follows: Impressions : - The entire examined colon is normal on direct and retroflexion views. - No specimens collected. Recommendations : - Discharge patient to home. - Resume previous diet. - Continue present medications. - Repeat colonoscopy in 10 years for screening purposes. My findings are described in the full procedure note, which is enclosed. If I can be of further assistance, please feel free to contact me at Doctor phone number(s): , Work: . Sincerely, Federico Moreno MD 02/25/2024 8:39:00 AM This report has been signed electronically.
--- NOTE | 2024-02-25 08:39 | OP.COLON_ITS ---
Patient Name: Verna Hunter Procedure Date: 02/25/2024 7:58 AM Date of : 1975 Age: 48 Procedure: Colonoscopy Indications: Screening for colorectal malignant neoplasm Providers: Federico Moreno MD Referring MD: Federico Moreno MD Medicines: Propofol per Anesthesia Patient Profile: Last Colonoscopy: none. The patient's first colonoscopy is today. Complications: No immediate complications. Procedure: Pre-Anesthesia Assessment: - Prior to the procedure, a History and Physical was performed, and patient medications and allergies were reviewed. The patient's tolerance of previous anesthesia was also reviewed. The risks and benefits of the procedure and the sedation options and risks were discussed with the patient. All questions were answered, and informed consent was obtained. Prior Anticoagulants: The patient has taken no anticoagulant or antiplatelet agents. After reviewing the risks and benefits, the patient was deemed in satisfactory condition to undergo the procedure. After I obtained informed consent, the scope was passed under direct vision. Throughout the procedure, the patient's blood pressure, pulse, and oxygen saturations were monitored continuously. The Colonoscope was introduced through the anus and advanced to the cecum, identified by appendiceal orifice and ileocecal valve. The colonoscopy was performed without difficulty. The patient tolerated the procedure well. The quality of the bowel preparation was good. The ileocecal valve, appendiceal orifice, and rectum were photographed. Scope In: 8:08:40 AM Scope Withdrawal Time 0 hours 6 minutes 21 seconds Scope Out: 8:18:34 AM Total Procedure Duration Time 0 hours 9 minutes 54 seconds Findings: The entire examined colon appeared normal on direct and retroflexion views. Impression: - The entire examined colon is normal on direct and retroflexion views. - No specimens collected. Recommendation: - Discharge patient to home. - Resume previous diet. - Continue present medications. - Repeat colonoscopy in 10 years for screening purposes. Procedure Code(s): --- Professional --- 48598, Colonoscopy, flexible; diagnostic, including collection of specimen(s) by brushing or washing, when performed (separate procedure) Diagnosis Code(s): --- Professional --- Z12.11, Encounter for screening for malignant neoplasm of colon CPT copyright 2021 [employer] [place] [employer]. All rights reserved. The codes documented in this report are preliminary and upon front of house manager review may be revised to meet current compliance requirements. Federico Moreno MD 02/25/2024 8:39:00 AM This report has been signed electronically. Number of Addenda: 0 Note Initiated On: 02/25/2024 7:58 AM
[2024-02-25 08:52] VITALS: BP 120/70
== END 2024-02-25 08:59 | disposition home or self-care (01) ==
LOC: EN 06:47 → AC 06:48
PROVIDERS: Anesthesiology; PCP Family Medicine; Referring Provider Family Medicine; Visit Provider Surgery
PROC: 0DJD8ZZ Inspection of Lower Intestinal Tract, Via Natural or Artificial Opening Endoscopic (ICD-10-PCS; CPT 45378; principal; 2024-02-25 07:55)
DX: Z12.11 Encounter for screening for malignant neoplasm of colon (principal); E11.9 Type 2 diabetes mellitus without complications; I10 Essential (primary) hypertension; E78.00 Pure hypercholesterolemia, unspecified; Z79.84 Long term (current) use of oral hypoglycemic drugs; Z79.899 Other long term (current) drug therapy; Z90.49 Acquired absence of other specified parts of digestive tract
CPT/HCPCS: 45378; 81025; 82962; J7120; J2405

== ENCOUNTER → 2024-05-16 | Outpatient (CLI) | payer MEDICAID, SELFPAY ==
--- NOTE | 2024-05-16 16:47 | US_ITS ---
STUDY: THYROID ULTRASOUND REASON FOR EXAM: Female, 48 years old. MULTIPLE THYROID NODULES TECHNIQUE: Ultrasound evaluation of the thyroid was performed with real-time and static ahn-scale imaging. COMPARISON: 06/02/2022 FINDINGS: RIGHT LOBE: The right lobe of the thyroid gland measures 7.3 x 2.8 x 2.7 cm. There is a heterogeneous echotexture. Nodule 1: No change in a 10 x 10 x 7 mm solid isoechoic water than tall ill-defined margin nodule and no echogenic foci (TR 3) in the inferior right lobe consistent with an adenoma. Nodule 2: No change in the 14 x 8 x 12 mm solid hypoechoic wider than tall ill-defined larger nodule with no echogenic foci (TR 4) in the posterior right lobe which may represent a thyroid adenoma or parathyroid adenoma. Follow-up ultrasound is recommended in 1 year. LEFT LOBE: The left lobe of the thyroid gland measures 7.2 x 2.7 x 2.2 cm. There is a heterogeneous echotexture. Nodule 3: No change in a 20 x 13 x 14 mm mixed cystic and solid isoechoic wider than tall ill-defined margin nodule no echogenic foci ([place] 2) in the posterior left lobe consistent with an adenoma. Nodule 4: No change in the 7 x 7 x 8 mm mixed cystic and solid isoechoic wider than tall ill-defined margin nodule and no echogenic foci (TR 3) in the mid left lobe consistent with an adenoma. ISTHMUS: The isthmus measures 5 mm thick. . The regional lymph nodes are normal. US/Thyroid IMPRESSION: Thyroiditis with no change in multiple nodules and follow-up ultrasound is recommended in one year. Electronically Signed: James Drake MD at 9:59 EDT ,
== END | disposition home or self-care (01) ==
LOC: US 16:43
PROVIDERS: PCP Family Medicine; Referring Provider Family Medicine; Visit Provider Family Medicine
DX: E04.2 Nontoxic multinodular goiter (principal)
CPT/HCPCS: 76536

== ENCOUNTER → 2024-09-15 | Outpatient (CLI) | payer MEDICAID, SELFPAY ==
[2024-09-15 12:39] LABS: Absolute Neutrophil Count 4.7 X10^3/uL (2.0-7.7); Basophil# 0.06 X10^3/uL; Basophil% 0.8 % (0-1); Eosinophil# 0.14 X10^3/uL; Eosinophils% 1.9 % (0-5); Hematocrit 39.4 % (37-47); Hemoglobin 11.5 g/dL (12.0-15.0); Lymphocyte % 23.6 % (19-41); Mean Corp Hgb Conc 29.2 g/dL (32-36); Mean Corpuscular Hgb 23.5 pg (27.0-32.0); Mean Corpuscular Volume 80.4 fL (81-99); Monocyte# 0.59 X10^3/uL; Monocyte% 8.2 % (0-10); NRBC Flagged by Analyzer 0 % (0-5); Neutrophil % 65.2 % (47-70); Platelet Count 267 K/mm3 (150-450); RBC Distribution Width CV 18.1 % (11.6-14.6); RBC Distribution Width SD 52.7 fl (35.1-43.9); White Blood Count 7.2 K/mm3 (4.4-11.0)
[2024-09-15 12:48] LABS: Microalbumin,Random Urine 31.4 mg/L (NO RANGE EST.); Microalbumin:Creatinine Ratio 39.6 mg/g CRE (<30 mg/g CRE)
[2024-09-15 12:59] LABS: AST(SGOT) 19 U/L (15-37); Alanine Aminotransfer ALT/SGPT 23 U/L (13-56); Albumin, Serum 3.7 g/dL (3.2-5.0); Alkaline Phosphatase 41 U/L (45-117); Anion Gap 6 (5-15); BUN 15 mg/dL (7-18); BUN/Creat Ratio 20.9 RATIO (10-20); Calcium,Total 9.7 mg/dL (8.5-10.1); Chloride 108 mmol/L (98-107); Cholesterol 112 mg/dL (200); Creatinine, Serum 0.72 mg/dL (0.55-1.02); EST Glomerular Filtration Rate 91 mL/min (>60); Est Glom Filt Rate - Afr Amer 110 mL/min (>60); Ferritin 6 ng/mL (8-252); Globulin 3.6 g/dL (2.2-4.2); Glucose 131 mg/dL (74-106); High Density Lipoprotein 57 mg/dL; Iron 41 ug/dL (50-170); Iron Binding Capacity,Total 407 ug/dL (250-450); Potassium 4.2 mmol/L (3.5-5.1); Protein, Total 7.3 g/dL (6.4-8.2); Sodium Level 140 mmol/L (136-145); Triglycerides 110 mg/dL; Very Low Density Lipoprotein 22 mg/dL (5-40)
[2024-09-15 13:52] LABS: Hemoglobin A1c 6.7 % (3.8-5.6)
== END | disposition home or self-care (01) ==
LOC: MFPLAB 10:38
PROVIDERS: PCP Family Medicine; Visit Provider Family Medicine
DX: E11.9 Type 2 diabetes mellitus without complications (principal); D50.9 Iron deficiency anemia, unspecified
CPT/HCPCS: 36415; 80053; 80061; 82043; 82570; 82728; 83036; 83540; 83550; 85025